=== PATIENT | male | born 1960 | race Caucasian/White ===

== ENCOUNTER 2017-05-08 12:30 | Outpatient (RCR) | payer MEDICARE, OTHER, MEDICAID ==
[~2017-05-08 12:30] MED LIST: AMBIEN 10MG10 MG PO; AMBIEN 5MG TABLE5 MG PO; ASPIRIN 81M81 MG/TA2 PO; CELEXA 20MG20 MG/TAB PO; CELEXA10 MG PO; COLACE 100100 MG/CAP PO; FLEXERIL 1010 MG/TAB PO; GLUCOPHAGE500 MG/TAB PO; LIPITOR 10MG10 MG PO; LOPRESSOR 225 MG/TAB PO; LOVENOX 4040 MG/0.4 SQ; MIRALAX PA17 GM/Dose PO; NICODERM C21 MG/PATC TD; NORCO 325 MG-101 TAB PO; NOVLOG SQ; NYSTATIN POWDER15 GM TOP; PERCOCET 325 MG1 TA2 PO; PLAVIX 75MG TAB75 MG PO; PREDNISONE20 MG PO; RT ADVAIR HFA 1112 G IH; RT SPIRIVA18 MCG IH; TYLENOL 325MG325 MG PO; VENTOLIN0.09 MG IH
== END 2017-05-14 | disposition home or self-care (01) ==
LOC: WSST
DX: I69.390 Apraxia following cerebral infarction (principal); M25.562 Pain in left knee; I69.351 Hemiplegia and hemiparesis following cerebral infarction affecting right dominant side; I69.398 Other sequelae of cerebral infarction; M62.81 Muscle weakness (generalized)
CPT/HCPCS: G8978-GP; G8979-GP; G8984-GO; G8985-GO; G8988-GO; G8999-GN; G9186-GN

== ENCOUNTER 2017-08-08 11:15 | Outpatient (RCR) | payer MEDICARE, OTHER | END 2017-08-13 | LOC: MKS.ESL.PT | DX: M77.12 Lateral epicondylitis, left elbow (principal); M25.562 Pain in left knee; R53.1 Weakness; Z86.73 Personal history of transient ischemic attack (TIA), and cerebral infarction without residual deficits | CPT/HCPCS: G8985-GO; G8987-GO; G9158-GN; G9186-GN ==

== ENCOUNTER 2017-10-23 11:45 | Outpatient (RCR) | payer MEDICARE, OTHER | END 2017-11-12 | disposition home or self-care (01) | LOC: MKS.ESL.PT | DX: M25.562 Pain in left knee (principal); R53.1 Weakness; Z86.73 Personal history of transient ischemic attack (TIA), and cerebral infarction without residual deficits | CPT/HCPCS: G8978-GP; G8979-GP; G8987-GO; G8988-GO ==

== ENCOUNTER → 2018-01-28 | Outpatient (CLI) | payer MEDICARE, OTHER | LOC: COL.RAD 07:27 | DX: K82.8 Other specified diseases of gallbladder (principal) ==

== ENCOUNTER 2018-02-01 10:15 | Outpatient (RCR) | payer MEDICARE, OTHER | END 2018-02-13 | LOC: MKS.ESL.PT | DX: M77.12 Lateral epicondylitis, left elbow (principal); M25.562 Pain in left knee; Z86.73 Personal history of transient ischemic attack (TIA), and cerebral infarction without residual deficits | CPT/HCPCS: G8987-GO; G8988-GO ==

== ENCOUNTER 2018-02-25 11:59 | Inpatient (IN) | payer MEDICARE, OTHER ==
[~2018-02-25] VITALS: Ht 177.8 cm; Wt 139.0 kg
[2018-03-26] VITALS (11 sets, daily range): BP systolic 114–143; BP diastolic 47–69; PULSE 73–92; TEMP 97.9–98.6
[2018-03-26] MEDS ORDERED: COZAAR 50MG50 MG/TAB PO (05:06)
[2018-03-26] MEDS ORDERED: AMBIEN 10MG10 MG PO (05:06)
[2018-03-26] MEDS ORDERED: FLOMAX 0.40.4 MG/CAP PO (05:07)
[2018-03-26] MEDS ORDERED: XALATAN EYE DROPS OU (05:08)
[2018-03-26] MEDS ORDERED: ULTRAM 50MG TAB50 MG PO (05:09)
[2018-03-26] MEDS ORDERED: MYRBETR50MG PO (06:02)
[2018-03-27 01:02] VITALS: BP 114/51; PULSE 76; TEMP 98.5
[2018-03-27 04:07] VITALS: BP 130/55; PULSE 79; TEMP 98.8
[2018-03-27 06:06] LABS: HEMOGLOBIN 10.7 g/dl (13.5-18.0)
[2018-03-27 06:07] LABS: HEMATOCRIT 32.2 % (42.0-52.0)
[2018-03-27 07:20] VITALS: BP 116/54; PULSE 88; TEMP 98.4
[2018-03-27 11:02] VITALS: BP 109/45; PULSE 84; TEMP 97.8
[2018-03-27 16:31] VITALS: BP 111/46; PULSE 97; TEMP 98.6
[2018-03-27 20:32] VITALS: BP 123/62; PULSE 101; TEMP 98.9
[2018-03-28 00:18] VITALS: BP 108/53; PULSE 101; TEMP 98.8
[2018-03-28 03:28] VITALS: BP 107/58; PULSE 99; TEMP 99.5
[2018-03-28 06:37] LABS: HEMATOCRIT 29.2 % (42.0-52.0); HEMOGLOBIN 9.8 g/dl (13.5-18.0)
[2018-03-28 08:10] VITALS: BP 90/39; PULSE 101; TEMP 98.1
[2018-03-28 16:44] VITALS: BP 103/38; PULSE 85; TEMP 99
[2018-03-28 19:56] VITALS: BP 90/36; PULSE 88; TEMP 98.2
[2018-03-28 23:25] VITALS: BP 90/41; PULSE 87; TEMP 98.2
[2018-03-29] VITALS (7 sets, daily range): BP systolic 93–123; BP diastolic 43–58; PULSE 51–100; TEMP 97.6–99.7
[2018-03-29 07:11] LABS: HEMATOCRIT 26.4 % (42.0-52.0); HEMOGLOBIN 9.1 g/dl (13.5-18.0)
[2018-03-29] MEDS ORDERED: ASPI325T6 PO (15:23)
[2018-03-30 04:49] VITALS: BP 108/57; PULSE 83; TEMP 98.5
[2018-03-30 11:53] VITALS: BP 108/57; PULSE 83; TEMP 98.5
[2018-03-30 12:15] VITALS: BP 96/44; PULSE 80; TEMP 98
[2018-03-30] MEDS ORDERED: PERCOCET 325 MG1 TA2 PO (17:30)
[2018-03-30] MEDS ORDERED: PHENERGAN 25 TA25 MG PO (17:31)
== END 2018-03-30 14:45 | DRG 470 ==
LOC: JCC 03-26 05:14
PROVIDERS: Orthopaedic Surgery Sports Medicine
PROC: 0SRD0J9 Replacement of Left Knee Joint with Synthetic Substitute, Cemented, Open Approach (ICD-10-PCS; principal; 2018-03-26 07:30)
DX: M17.12 Unilateral primary osteoarthritis, left knee (principal); E66.2 Morbid (severe) obesity with alveolar hypoventilation; Z68.42 Body mass index [BMI] 45.0-49.9, adult; E11.9 Type 2 diabetes mellitus without complications; I10 Essential (primary) hypertension; Z95.2 Presence of prosthetic heart valve; Z79.01 Long term (current) use of anticoagulants; J44.9 Chronic obstructive pulmonary disease, unspecified; F17.210 Nicotine dependence, cigarettes, uncomplicated; Z86.73 Personal history of transient ischemic attack (TIA), and cerebral infarction without residual deficits
CPT/HCPCS: A9284; C1713; C1776; J0690; J1100; J2250; J2405; J2704; J3010; J7030

== ENCOUNTER 2018-03-20 15:00 | Outpatient (RCR) | payer MEDICARE, OTHER ==
[2018-03-26] MEDS ORDERED: COZAAR 50MG50 MG/TAB PO (05:06)
[2018-03-26] MEDS ORDERED: AMBIEN 10MG10 MG PO (05:06)
[2018-03-26] MEDS ORDERED: FLOMAX 0.40.4 MG/CAP PO (05:07)
[2018-03-26] MEDS ORDERED: XALATAN EYE DROPS OU (05:08)
[2018-03-26] MEDS ORDERED: ULTRAM 50MG TAB50 MG PO (05:09)
[2018-03-26] MEDS ORDERED: MYRBETR50MG PO (06:02)
[2018-03-29] MEDS ORDERED: ASPI325T6 PO (15:23)
[2018-03-30] MEDS ORDERED: PERCOCET 325 MG1 TA2 PO (17:30)
[2018-03-30] MEDS ORDERED: PHENERGAN 25 TA25 MG PO (17:31)
[2018-04-09] MEDS ORDERED: DESENEX TP (08:40)
[2018-04-09] MEDS ORDERED: PERCOCET 325 MG1 TAB PO (08:41)
[2018-04-09] MEDS ORDERED: COLACE 100100 MG/CAP PO (09:00)
[2018-04-09] MEDS ORDERED: SENOKOT S 50 MG1 TAB PO (09:04)
== END 2018-05-14 11:21 | disposition home or self-care (01) ==
LOC: MKS.ESL.PT 15:00
DX: M25.562 Pain in left knee (principal); I69.951 Hemiplegia and hemiparesis following unspecified cerebrovascular disease affecting right dominant side

== ENCOUNTER 2018-03-29 15:46 | Inpatient (IN) | payer MEDICARE, OTHER ==
[~2018-03-29] VITALS: Ht 177.8 cm; Wt 148.6 kg
[~2018-03-29 15:46] MED LIST changes: +ASPI325T6 PO; +COZAAR 50MG50 MG/TAB PO; +FLOMAX 0.40.4 MG/CAP PO; +MYRBETR50MG PO; +ULTRAM 50MG TAB50 MG PO; +XALATAN EYE DROPS OU
[2018-03-30 15:07] VITALS: BP 109/52; PULSE 82; TEMP 98.4
[2018-03-30] MEDS ORDERED: PERCOCET 325 MG1 TA2 PO (17:30)
[2018-03-30] MEDS ORDERED: PHENERGAN 25 TA25 MG PO (17:31)
[2018-03-30 18:57] VITALS: BP 109/52; PULSE 82; TEMP 98.4
[2018-03-31 05:07] VITALS: BP 107/53; PULSE 73; TEMP 98.4
[2018-03-31 18:07] VITALS: BP 115/52; PULSE 77; TEMP 97.7
[2018-04-01 05:38] VITALS: BP 108/66; PULSE 81; TEMP 98.6
[2018-04-01 15:02] VITALS: BP 112/47; PULSE 78; TEMP 98.2
[2018-04-02 06:23] VITALS: BP 118/57; PULSE 84; TEMP 99.1
[2018-04-02 16:36] VITALS: BP 104/50; PULSE 80; TEMP 98
[2018-04-03 06:03] VITALS: BP 118/53; PULSE 78; TEMP 98.5
[2018-04-03 16:41] VITALS: BP 102/51; PULSE 81; TEMP 98.2
[2018-04-04 04:52] VITALS: BP 115/55; PULSE 79; TEMP 98.3
[2018-04-04 16:12] VITALS: BP 104/45; PULSE 82; TEMP 98.3
[2018-04-05 05:31] VITALS: BP 112/53; PULSE 76; TEMP 98.2
[2018-04-05 15:04] VITALS: BP 102/49; PULSE 81; TEMP 98.4
[2018-04-06 05:49] VITALS: BP 111/56; PULSE 77; TEMP 98.3
[2018-04-06 15:56] VITALS: BP 112/48; PULSE 80; TEMP 97.9
[2018-04-07 06:04] VITALS: BP 114/53; PULSE 85; TEMP 98.7
[2018-04-07 15:34] VITALS: BP 120/57; PULSE 82; TEMP 98.2
[2018-04-08 04:40] VITALS: BP 98/56; PULSE 91; TEMP 98.2
[2018-04-08 18:00] VITALS: BP 107/66; PULSE 72; TEMP 99
[2018-04-09 05:13] VITALS: BP 103/55; PULSE 77; TEMP 98.2
[2018-04-09] MEDS ORDERED: DESENEX TP (08:40)
[2018-04-09] MEDS ORDERED: PERCOCET 325 MG1 TAB PO (08:41)
[2018-04-09] MEDS ORDERED: COLACE 100100 MG/CAP PO (09:00)
[2018-04-09] MEDS ORDERED: SENOKOT S 50 MG1 TAB PO (09:04)
== END 2018-04-09 13:40 | disposition home health service (06) | DRG 560 ==
DX: Z47.1 Aftercare following joint replacement surgery (principal); I69.351 Hemiplegia and hemiparesis following cerebral infarction affecting right dominant side; Z68.42 Body mass index [BMI] 45.0-49.9, adult; Z96.652 Presence of left artificial knee joint; M17.12 Unilateral primary osteoarthritis, left knee; I10 Essential (primary) hypertension; E11.9 Type 2 diabetes mellitus without complications; Z95.2 Presence of prosthetic heart valve; F17.210 Nicotine dependence, cigarettes, uncomplicated; E66.01 Morbid (severe) obesity due to excess calories
CPT/HCPCS: 99222-AI; 99232-AI; 99239; J1815

== ENCOUNTER → 2018-06-21 | Outpatient (CLI) | payer MEDICARE, OTHER ==
[2018-06-21] VITALS (9 sets, daily range): BP systolic 101–121; BP diastolic 53–68; PULSE 75–84
[~2018-06-21] VITALS: Ht 177.8 cm; Wt 143.2 kg
[~2018-06-21] MED LIST changes: +ASPIRIN E.C. 8181 MG PO; +DESENEX TP; +PERCOCET 325 MG1 TAB PO; +PHENERGAN 25 TA25 MG PO; +SENOKOT S 50 MG1 TAB PO; +WELLBUTRIN SR150 M1 PO
[2018-06-21 08:44] LABS: INR 1.1 (0.8-3.0)
== END ==
LOC: COL.RAD 08:09
PROVIDERS: Family Medicine
DX: R74.8 Abnormal levels of other serum enzymes (principal)
CPT/HCPCS: J2250; J3010

== ENCOUNTER 2018-08-08 13:45 | Outpatient (RCR) | payer MEDICARE, OTHER | END 2018-08-12 | disposition home or self-care (01) | LOC: MKS.ESL.PT | DX: Z47.1 Aftercare following joint replacement surgery (principal); Z96.652 Presence of left artificial knee joint; M17.11 Unilateral primary osteoarthritis, right knee; I69.331 Monoplegia of upper limb following cerebral infarction affecting right dominant side; M54.5 Low back pain; R26.89 Other abnormalities of gait and mobility | CPT/HCPCS: G8978-GP; G8979-GP; G8984-GO; G8985-GO ==

== ENCOUNTER → 2018-11-18 | Outpatient (RCR) | payer MEDICARE, OTHER | END | disposition home or self-care (01) | LOC: MKS.ESL.OT → MKS.ESL.PT 08-20 13:30 → MKS.ESL.OT 08-27 13:30 → MKS.ESL.PT 11-07 10:30 → MKS.ESL.OT 11-11 13:15 | DX: Z47.1 Aftercare following joint replacement surgery (principal); Z96.652 Presence of left artificial knee joint; I69.331 Monoplegia of upper limb following cerebral infarction affecting right dominant side; M54.5 Low back pain; R26.89 Other abnormalities of gait and mobility ==

== ENCOUNTER 2019-02-10 13:15 | Outpatient (RCR) | payer MEDICARE, OTHER | END 2019-02-19 | LOC: MKS.ESL.OT | DX: Z47.1 Aftercare following joint replacement surgery (principal); I69.851 Hemiplegia and hemiparesis following other cerebrovascular disease affecting right dominant side; Z96.652 Presence of left artificial knee joint ==

== ENCOUNTER 2019-03-08 11:58 | Inpatient (IN) | payer MEDICARE, OTHER ==
[~2019-03-08] VITALS: Ht 177.8 cm; Wt 149.6 kg
[~2019-03-08 11:58] MED LIST changes: +COUMADIN 5MG5 MG/TAB PO; +IMURAN 50MG TAB50 MG PO; +PREDNISONE 5MG5 MG PO; +TOPROL XL 25MG25 MG PO; -WELLBUTRIN SR150 M1 PO; +WELLBUTRIN XL150 MG PO
[2019-03-08 13:09] VITALS: BP 114/60; PULSE 63; TEMP 98.5
[2019-03-08] MEDS ORDERED: LOVENOX150 MG/ML SQ (13:32)
[2019-03-08] MEDS ORDERED: BETAPACE160 MG PO (13:33)
[2019-03-08] MEDS ORDERED: COUMADIN4 MG PO (13:35)
[2019-03-08] MEDS ORDERED: GLUCOPHAGE500 MG/TAB PO (13:38)
[2019-03-08 17:26] VITALS: BP 116/57; PULSE 66; TEMP 98.1
[2019-03-09 05:48] VITALS: BP 96/50; PULSE 67; TEMP 99.2
[2019-03-09 06:20] LABS: BASO % 0.3 % (0.0-2.0); EOS % 0.5 % (0-4.0); GRAN # 2.8 (1.4-6.5); GRAN % 75.1 % (42.2-75.2); LYMPH # 0.7 (1.2-3.4); MEAN CELL VOLUME 88 fl (80.0-100.0); MEAN CORPUSCULAR HGB CONC 31 g/dl (33.0-37.0); MEAN PLATELET VOLUME 9.4 fl (7.4-10.4); MONO # 0.2 (0.1-0.6); PLATELET COUNT 197 K/mm3 (130-400); RED BLOOD COUNT 3.06 M/mm3 (4.20-5.60); REDCELL DISTRIBUTION WIDTH-CV 17.4 % (11.5-14.5)
[2019-03-09 06:21] LABS: PROTHROMBIN TIME 23.6 SECONDS (9.7-12.8)
[2019-03-09 06:23] LABS: HEMATOCRIT 26.9 % (42.0-52.0); HEMOGLOBIN 8.4 g/dl (13.5-18.0); MEAN CORPUSCULAR HEMOGLOBIN 27 pg (27.0-31.0)
[2019-03-09 06:38] LABS: ALBUMIN 2.8 gm/dL (3.5-5.0); BILIRUBIN,TOTAL 1.2 mg/dL (0.0-1.0); CREATININE, serum 0.7 (0.66-1.25); MAGNESIUM 2.1 mg/dL (1.6-2.3); POTASSIUM 3.8 mmol/L (3.4-5.0); TOTAL PROTEIN 7.6 gm/dL (6.4-8.2)
[2019-03-09 16:29] VITALS: BP 116/59; PULSE 66; TEMP 98.5
[2019-03-09 16:31] VITALS: BP 116/59
[2019-03-09 17:42] VITALS: BP 116/59
[2019-03-10 05:22] VITALS: BP 108/68; PULSE 72; TEMP 100
[2019-03-10 05:58] VITALS: TEMP 100.1
[2019-03-10 06:43] VITALS: BP 108/68
[2019-03-10 06:47] LABS: INR 1.7 (0.8-3.0); PROTHROMBIN TIME 20.6 SECONDS (9.7-12.8)
[2019-03-10 08:34] VITALS: TEMP 99.3
[2019-03-10 16:22] VITALS: BP 107/52; PULSE 70; TEMP 98.9
[2019-03-11 06:00] VITALS: BP 147/67; PULSE 102; TEMP 98.9
[2019-03-11 06:20] VITALS: BP 109/48
[2019-03-11 08:06] LABS: INR 1.4 (0.8-3.0); PROTHROMBIN TIME 16.4 SECONDS (9.7-12.8)
[2019-03-11 16:57] VITALS: BP 104/46; PULSE 73; TEMP 98.4
[2019-03-11 21:12] VITALS: BP 126/48
[2019-03-12 05:57] VITALS: BP 106/53; PULSE 71; TEMP 98.8
[2019-03-12 07:02] LABS: BASO % 0.2 % (0.0-2.0); EOS % 0.7 % (0-4.0); GRAN # 3.4 (1.4-6.5); GRAN % 75.3 % (42.2-75.2); LYMPH # 0.8 (1.2-3.4); LYMPH % 18.2 % (20.0-51.0); MEAN CELL VOLUME 87 fl (80.0-100.0); MEAN CORPUSCULAR HGB CONC 31 g/dl (33.0-37.0); MEAN PLATELET VOLUME 9.3 fl (7.4-10.4); MONO # 0.2 (0.1-0.6); MONO % 4.5 % (1.7-9.3); PLATELET COUNT 197 K/mm3 (130-400); REDCELL DISTRIBUTION WIDTH-CV 17.2 % (11.5-14.5)
[2019-03-12 07:07] LABS: HEMATOCRIT 26.8 % (42.0-52.0); HEMOGLOBIN 8.4 g/dl (13.5-18.0); MEAN CORPUSCULAR HEMOGLOBIN 27 pg (27.0-31.0)
[2019-03-12 07:10] LABS: INR 1.5 (0.8-3.0); PROTHROMBIN TIME 17.3 SECONDS (9.7-12.8)
[2019-03-12 07:13] LABS: ALBUMIN 2.8 gm/dL (3.5-5.0); BILIRUBIN,TOTAL 1.4 mg/dL (0.0-1.0); CALCIUM 8.2 mg/dL (8.4-10.2); CREATININE, serum 0.64 (0.66-1.25); MAGNESIUM 1.9 mg/dL (1.6-2.3); TOTAL PROTEIN 7.8 gm/dL (6.4-8.2)
[2019-03-12 16:29] VITALS: BP 85/35
[2019-03-12 16:30] VITALS: BP 110/54; BP 80/30; PULSE 77; TEMP 98.9
[2019-03-12 18:01] VITALS: BP 90/54
[2019-03-12 21:30] VITALS: BP 100/60
[2019-03-13 05:15] VITALS: BP 97/43; PULSE 76; TEMP 98.6
[2019-03-13 06:00] VITALS: BP 91/33
[2019-03-13 06:08] LABS: INR 1.7 (0.8-3.0); PROTHROMBIN TIME 20.6 SECONDS (9.7-12.8)
[2019-03-13 17:57] VITALS: BP 120/59; PULSE 73; TEMP 98.7
[2019-03-13 17:58] VITALS: BP 120/59
[2019-03-14 05:07] VITALS: BP 100/54; PULSE 76; TEMP 98.5
[2019-03-14 06:49] VITALS: BP 101/52
[2019-03-14 07:04] LABS: PROTHROMBIN TIME 24.1 SECONDS (9.7-12.8)
[2019-03-14 08:58] VITALS: BP 112/60; PULSE 60
[2019-03-14 15:45] VITALS: BP 107/58
[2019-03-14 15:46] VITALS: BP 107/58; PULSE 66; TEMP 98.2
[2019-03-15 06:16] VITALS: BP 97/46; PULSE 64; TEMP 98.3
[2019-03-15 09:01] LABS: INR 2.2 (0.8-3.0); PROTHROMBIN TIME 26.1 SECONDS (9.7-12.8)
[2019-03-15 16:01] VITALS: BP 110/51
[2019-03-15 16:02] VITALS: BP 122/51; PULSE 81; TEMP 98.1
[2019-03-16 06:01] VITALS: BP 106/46; PULSE 66; TEMP 98.4
[2019-03-16 08:30] LABS: INR 2.2 (0.8-3.0); PROTHROMBIN TIME 26.9 SECONDS (9.7-12.8)
[2019-03-16 17:06] VITALS: BP 105/56; PULSE 65; TEMP 98.4
[2019-03-16 17:07] VITALS: BP 118/54; BP 121/61; PULSE 73
[2019-03-16 17:08] VITALS: BP 110/51
[2019-03-17 05:45] VITALS: BP 95/45; PULSE 74; TEMP 99.4
[2019-03-17 07:02] LABS: MEAN CELL VOLUME 87 fl (80.0-100.0); MEAN CORPUSCULAR HGB CONC 31 g/dl (33.0-37.0); PLATELET COUNT 201 K/mm3 (130-400); RED BLOOD COUNT 3.06 M/mm3 (4.20-5.60); REDCELL DISTRIBUTION WIDTH-CV 17.4 % (11.5-14.5)
[2019-03-17 07:06] LABS: HEMATOCRIT 26.5 % (42.0-52.0); HEMOGLOBIN 8.1 g/dl (13.5-18.0); MEAN CORPUSCULAR HEMOGLOBIN 26 pg (27.0-31.0)
[2019-03-17 07:08] LABS: INR 2.3 (0.8-3.0)
[2019-03-17 07:38] LABS: BAND 7 % (0-10); EOSINOPHIL 2 % (0-4); LYMPHOCYTE 17 % (20.0-51.0); METAMYELOCYTE 1 % (0-0); NEUTROPHILS 73 % (42.0-75.2); PLATELET ESTIMATE NORMAL (NORMAL); TARGET CELLS 1+
[2019-03-17 16:04] VITALS: BP 107/43; PULSE 67; TEMP 98.1
[2019-03-17 16:06] VITALS: BP 107/43
[2019-03-18 06:10] VITALS: BP 114/55; PULSE 73; TEMP 99.3
[2019-03-18 08:27] LABS: INR 2.4 (0.8-3.0); PROTHROMBIN TIME 28.5 SECONDS (9.7-12.8)
[2019-03-18 09:16] VITALS: BP 130/56; PULSE 54; TEMP 99.5
[2019-03-18 10:43] VITALS: BP 121/66; PULSE 73; TEMP 99.1
[2019-03-18 16:10] VITALS: BP 118/52; PULSE 76; TEMP 98.4
[2019-03-18 18:02] VITALS: BP 123/53
[2019-03-19 01:27] VITALS: BP 104/51; PULSE 81; TEMP 99.5
[2019-03-19 06:40] LABS: BASO % 0.3 % (0.0-2.0); EOS % 0.3 % (0-4.0); GRAN # 2.5 (1.4-6.5); GRAN % 72.3 % (42.2-75.2); LYMPH # 0.7 (1.2-3.4); LYMPH % 20.7 % (20.0-51.0); MEAN CELL VOLUME 85 fl (80.0-100.0); MEAN CORPUSCULAR HGB CONC 32 g/dl (33.0-37.0); MEAN PLATELET VOLUME 9.3 fl (7.4-10.4); MONO # 0.2 (0.1-0.6); MONO % 5.8 % (1.7-9.3); PLATELET COUNT 194 K/mm3 (130-400); RED BLOOD COUNT 2.94 M/mm3 (4.20-5.60); REDCELL DISTRIBUTION WIDTH-CV 17.5 % (11.5-14.5)
[2019-03-19 06:41] LABS: INR 2.2 (0.8-3.0); PROTHROMBIN TIME 26.6 SECONDS (9.7-12.8)
[2019-03-19 07:01] LABS: HEMOGLOBIN 7.9 g/dl (13.5-18.0); MEAN CORPUSCULAR HEMOGLOBIN 27 pg (27.0-31.0)
[2019-03-19] MEDS ORDERED: FERROUS SU325 MG/TAB PO (09:28)
[2019-03-19] MEDS ORDERED: TYLENOL 325MG325 MG PO (09:29)
[2019-03-19] MEDS ORDERED: PROTONIX20 MG PO (09:30)
== END 2019-03-19 15:30 | disposition home or self-care (01) | DRG 309 ==
LOC: COL.ER 11:58 → EDSTATUS 12:00
PROVIDERS: ADMIT Internal Medicine
DX: I48.91 Unspecified atrial fibrillation (principal); E87.1 Hypo-osmolality and hyponatremia; Z68.42 Body mass index [BMI] 45.0-49.9, adult; I69.251 Hemiplegia and hemiparesis following other nontraumatic intracranial hemorrhage affecting right dominant side; E11.9 Type 2 diabetes mellitus without complications; F41.9 Anxiety disorder, unspecified; F32.9 Major depressive disorder, single episode, unspecified; K75.4 Autoimmune hepatitis; N40.0 Benign prostatic hyperplasia without lower urinary tract symptoms; D64.9 Anemia, unspecified; G47.00 Insomnia, unspecified; E66.01 Morbid (severe) obesity due to excess calories; F17.210 Nicotine dependence, cigarettes, uncomplicated; Z79.01 Long term (current) use of anticoagulants; Z79.84 Long term (current) use of oral hypoglycemic drugs; Z95.2 Presence of prosthetic heart valve; Z96.652 Presence of left artificial knee joint; Z88.8 Allergy status to other drugs, medicaments and biological substances
CPT/HCPCS: 99222-AI; 99232-AI; A9284; J1650; J1815; J7500; J7512

== ENCOUNTER 2019-06-05 13:00 | Outpatient (RCR) | payer MEDICARE, OTHER ==
[~2019-06-05 13:00] MED LIST changes: +BETAPACE160 MG PO; +COUMADIN4 MG PO; +FERROUS SU325 MG/TAB PO; +LOVENOX150 MG/ML SQ; +PROTONIX20 MG PO
[2019-06-10] MEDS ORDERED: TYLENOL 8 HR PO (22:06)
[2019-06-10] MEDS ORDERED: FERRO-TIME325 MG PO (22:07)
[2019-06-10] MEDS ORDERED: LASIX 20MG TABL20 MG PO (22:14)
[2019-06-10] MEDS ORDERED: COUMADIN 1010 MG/TAB PO (22:15)
[2019-06-10] MEDS ORDERED: LOPRESSOR 550 MG/TAB PO (22:17)
[2019-06-10] MEDS ORDERED: LOPRESSOR100 MG PO (22:17)
[2019-06-10] MEDS ORDERED: MICRO-GUARD21 TP (22:18)
[2019-06-10] MEDS ORDERED: PROTONIX20 MG PO (22:19)
[2019-06-18] MEDS ORDERED: LIPITOR 80MG80 MG PO (10:41)
[2019-06-18] MEDS ORDERED: BETAPACE 80MG80 MG PO (10:41)
[2019-06-18] MEDS ORDERED: NICODERM C14 MG/PATC TD (10:42)
[2019-06-18] MEDS ORDERED: ASPIRIN 81M81 MG/TA2 PO (10:42)
[2019-06-18] MEDS ORDERED: MELATIN 3 MG-11 TAB PO (10:43)
[2019-06-18] MEDS ORDERED: WELLBUTRIN XL150 MG PO (15:34)
[2019-06-18] MEDS ORDERED: SEROQUEL50 MG PO (15:35)
[2019-06-18] MEDS ORDERED: LEVAQUIN 750MG750 M1 PO (15:36)
[2019-06-18] MEDS ORDERED: NORCO 325 MG-51 TAB PO (15:48)
[2019-06-18] MEDS ORDERED: LOTSPY TOP (15:52)
[2019-06-18] MEDS ORDERED: MIRALAX PA17 GM/Dose PO (15:54)
== END 2019-06-21 | disposition home or self-care (01) ==
LOC: MKS.ESL.PT
DX: I69.351 Hemiplegia and hemiparesis following cerebral infarction affecting right dominant side (principal); I48.91 Unspecified atrial fibrillation

== ENCOUNTER 2019-06-18 13:21 | Inpatient (IN) | payer MEDICARE, OTHER ==
[~2019-06-18] VITALS: Ht 177.8 cm; Wt 134.4 kg
[~2019-06-18 13:21] MED LIST changes: +BETAPACE 80MG80 MG PO; +COUMADIN 1010 MG/TAB PO; +FERRO-TIME325 MG PO; +LASIX 20MG TABL20 MG PO; +LIPITOR 80MG80 MG PO; +LOPRESSOR 550 MG/TAB PO; +LOPRESSOR100 MG PO; +MELATIN 3 MG-11 TAB PO; +MICRO-GUARD21 TP; +NICODERM C14 MG/PATC TD; +TYLENOL 8 HR PO
[2019-06-18] MEDS ORDERED: WELLBUTRIN XL150 MG PO (15:34)
[2019-06-18] MEDS ORDERED: SEROQUEL50 MG PO (15:35)
[2019-06-18] MEDS ORDERED: LEVAQUIN 750MG750 M1 PO (15:36)
[2019-06-18 15:44] VITALS: BP 148/55; PULSE 76; TEMP 98.1
[2019-06-18] MEDS ORDERED: NORCO 325 MG-51 TAB PO (15:48)
[2019-06-18] MEDS ORDERED: LOTSPY TOP (15:52)
[2019-06-18] MEDS ORDERED: MIRALAX PA17 GM/Dose PO (15:54)
--- NOTE | 2019-06-18 17:55 | NUR ---
Pt was transfered to room 335 from medical unit. He is awake and A/Ox4. He is able to transfer from w/c to bed with 2x assist pivot turn. Upon arrival pt noted to have bilateral FA's wrapped with kerlix + soft gauze, appeared to be too tight on pt's skin. Removed at this time. Pt has multiple skin tears to bilateral FAs + right hand. Wounds oozing blood. Dressings changed at this time. Steri strips applied with foam dressings for absorption. Pt continues to have occasional incontinece with movement/coughing. Linens changed and rubi care provided. Sister at bedside, both updated on plan of care.
--- NOTE | 2019-06-18 20:00 | NUR ---
REPORT FROM ERICA TUCKER. PT RESTING IN BED. SISTER AT BEDSIDE. VERY SUPPORTIVE. PT A&OX4. SPEECH DIFFICULT TO UNDERSTAND. NYSTAGMUS AND ENTROPIA OF RT EYE. WEARS PATCH ON LT EYE PRN. SEE ASSESSMENT R/T BILAT ARM INJURIES FROM HOME FALL. RT HEMIPARESIS NOTED. +SENSATION. 4TH TOE LT FOOT HX AMPUTATION. C/O CONTINUED RT SHOULDER PAIN. KPAD STARTED FOR COMFORT. TOO SOON FOR PAIN MEDICATION. PT HAS URINARY INCONTINENCE. CLEANED UP. APPLIED LOTRIMIN PWDR TO SMITH AREA. WEARS DIAPERS AT HS. CALL LIGHT IN REACH. BED ALARM SET.
[2019-06-19 04:52] VITALS: BP 153/62; PULSE 74; TEMP 98.4
--- NOTE | 2019-06-19 07:51 | NUR ---
Patient resting in bed at this time, call light in reach and bed alarm is on. Patient in pleasent mood. Ate all his breakfast. Given prn pain meds for right shoulder and back pain will continue to monitor.
--- NOTE | 2019-06-19 13:25 | NUR ---
SW met with the patient to complete assessment on Rehab. Pt is alert & oriented. He is able to verbally communicate his needs & wants to others but continues to have some slurred speech. Pt lives alone & has good support from his sisters, Jacklyn (ph#[phone]) & Edwina (ph#[phone]). Pt lives in an apartment on the ground floor & has no steps to enter. The bathroom has a tub/shower combo w/ curtain, grab bars, & hand held shower head. Pt reports being independent with ADLs & walked mostly w/ a s/cane. Pt did his own cooking, housekeeping, laundry, shopping, medication, & finance management. Pt's PCP is Dr. Forrest and he receives his medications at the [facility], which he reports no difficulties obtaining his meds. The pt does have advanced directives in EMR. Pt does report having some depression due to the new stroke & recent medical issues & is open to having SW visit with him. Psych has been consulted for management of antidepressant, as his Wellburtrin is being discontinued & has been on Seroquel for hallucinations, which he hasn't been having. Pt plans to return back home w/ support from his sisters. His goal is to be able to walk better & take care of himself.
--- NOTE | 2019-06-19 15:02 | NUR ---
Dr. Alan called this nurse this morning and wanted to know the update on patient since there was a new Psych consult initiated. Per Dr. Levi this nurse reported that patient had his last dose of Wellbutrin and is currently on Seroquel, but has not been having any hallucinations any more. This nurse received the following new orders: Decrease Seroquel to 25 mg at HS and to continue Wellbutrin [address] Alan. This nurse voiced understanding and will continue to monitor patient. The will see patient on Sunday.
--- NOTE | 2019-06-19 15:19 | NUR ---
Initial visit; Patient thanked Pouring Crane Operator for stopping and introducing herself though he declined spiritual care. Pouring Crane Operator wished him well.
[2019-06-19 18:09] VITALS: BP 161/63; PULSE 75; TEMP 98.1
--- NOTE | 2019-06-19 19:28 | NUR ---
Patient required staff to open containers for him due to right side flaccidity. Able to eat on his own and drink on his own using utinsils, but did it slow. When rolling from left to right during an incontinent brief change that was through his shorts it required one person to roll him over and hold on to him and the other to wipe him.
--- NOTE | 2019-06-19 20:00 | NUR ---
PT RESTING IN BED. A&OX4. SLURRED SPEECH. RT SIDE HEMIPARESIS. HAS RT HAND CLINCHED AT TIMES WITH ARM STIFF. ARMS ELEVATED ON PILLOWS. NOTED NYSTAGMUS WITH RT ENTROPIA. ADMITS TO RT SHOULDER PAIN. PAIN LESS SINCE PAIN MED AROUND 1700. KPAD TO THIS AREA. INCONT OF URINE. WEARS DIAPERS. CALL LIGHT IN REACH. BED ALARM SET. NO FURTHER NEEDS.
--- NOTE | 2019-06-20 04:14 | NUR ---
INCONTINENT URINE. BEDDING, DIAPER AND GOWN CHANGED. URINE SL CONCENTRATED. NO ODOR. NOTED INNER BUTTOCK RED. SKIN INTACT. BARRIER OINTMENT APPLIED. PT RESTING WELL SINCE PAIN MED. RT HAND PRETTY MUCH STAYS CLINCHED. RLE W/ SPASMS WHEN REPOSITIONED. CALL LIGHT IN REACH. BED ALARM SET.
[2019-06-20 05:48] VITALS: BP 157/68; PULSE 82; TEMP 98.3
[2019-06-20 06:51] LABS: INR 1.5 (0.8-3.0); PROTHROMBIN TIME 18.1 SECONDS (9.7-12.8)
--- NOTE | 2019-06-20 11:25 | NUR ---
Warfarin Initial Dosing Pharmacy Note Ordering Provider: Adalid Levi MD Indication: Atrial fibrillation, h/o aortic valve replacement-bioprosthetic, h/o CVA on therapeutic Warfarin LABS: INR 1.5 Recommendation: Increase Warfarin back to home dose of 10 mg po qHS. Previous INR levels supratherapeutic. Decreased dose to Warfarin 8 mg po qHS with start of Levquin due to drug interaction. Bridging with therapeutic Lovenox until INR therapeutic. Pharmacy will continue to monitor. Home Regimen: Warfarin 10 mg po qHS
--- NOTE | 2019-06-20 11:57 | NUR ---
Verified with pt's pharmacy pt's prednisone dose, per Dr. Levi, adjusted order.
[2019-06-20 15:44] VITALS: BP 137/60; PULSE 74; TEMP 98.2
--- NOTE | 2019-06-20 17:34 | NUR ---
Pt asked about second norco tab ordered, looked up previous room's orders and called Dr. Levi, see new order. Pt reporting unrelieved pain to right shoulder. Asked sister to bring pt's loop recorder transmitter from home per cardiology. Stopped potassium protocol and started scheduled PO K+. Reviewed med changes with pt. Mepilex dressings to BUE intact, therapy applied cotton roll sleeve. Sister visited today, sisters in law to visit this guadalupe.
--- NOTE | 2019-06-20 20:02 | NUR ---
Introduced night nurse Mami to pt, in bed with cell phone and tv on. Pt reports pain after second [place] improved.
--- NOTE | 2019-06-20 20:35 | NUR ---
Pt assessment complete. Incont. of urine. Bed changed. C/O right arm pain rated 2/10. Speech remains slurred. At 2200, I brought pt's HS meds to him. Alert and talking, tells me he will take 2 pills at a time. Pt has no difficulty swallowing medication. He stated that he wanted to wait a little bit for his Lovenox and his eye gtts until after he voided. Voids small amt in urinal and is incontinent of large amt. 2212 pt began to appear to have a seizure. Snoring resp, with clinched teeth. No response. 2220 Called Surg Vegetable Preparer and we monitored VS and kept pt safe. Pt becomes gurgly, turned pt to L side, vomits large amt undigested food. Suctioned out mouth. O2 at 3L/NC. 2230 Dr Richey notified. 223 supervisor of instruction notified. 2255 Rossi at bedside. 2315 supervisor of instruction started #[id number] in Left AC on 2nd attempt. Lab in to draw blood. RT in room. [address] per cot and then transfer to ICU#3. Family notified by supervisor of instruction. Report called to CAITLIN Calvin in ICU at 2334.
[2019-06-20 22:28] VITALS: BP 160/103; PULSE 124; TEMP 98.7
[2019-06-20 22:34] VITALS: BP 195/80
[2019-06-20 23:19] LABS: MEAN CELL VOLUME 83 fl (80.0-100.0); MEAN CORPUSCULAR HGB CONC 31 g/dl (33.0-37.0); MEAN PLATELET VOLUME 9.2 fl (7.4-10.4); PLATELET COUNT 305 K/mm3 (130-400); RED BLOOD COUNT 4.18 M/mm3 (4.20-5.60); REDCELL DISTRIBUTION WIDTH-CV 19.9 % (11.5-14.5)
[2019-06-20 23:20] LABS: HEMATOCRIT 34.8 % (42.0-52.0); HEMOGLOBIN 10.8 g/dl (13.5-18.0); MEAN CORPUSCULAR HEMOGLOBIN 26 pg (27.0-31.0)
[2019-06-20 23:33] LABS: ARTERIAL BLD GAS O2 SATURATION 88.1 % (92-100); ARTERIAL BLD GAS TCO2 CT 27.6; ARTERIAL BLOOD GAS BASE EXCESS 2.6 (-2-2); ARTERIAL BLOOD GAS HCO3 26.4 meq/L (22-26); ARTERIAL BLOOD GAS PCO2 38.1 mmHg (35-45); ARTERIAL BLOOD GAS PO2 56.2 mmHg (80-100); ARTERIAL BLOOD GAS pH 7.46 (7.35-7.45)
[2019-06-20 23:40] LABS: ANISOCYTOSIS 2+; HYPOCHROMIA 2+; LYMPHOCYTE 13 % (20.0-51.0); MYELOCYTE 3 % (0-0); NEUTROPHILS 81 % (42.0-75.2); PLATELET ESTIMATE NORMAL (NORMAL)
--- NOTE | 2019-06-20 23:50 | NUR ---
Arrived to the unit via stretcher; patient not alert and oriented. Snoring respirations noted; No response to sternal rubbing. Attached to all monitors. Dr. Richey in the unit to see patient. horticultural services supervisor epifanio ferrera to contact family members.
[2019-06-20 23:58] VITALS: BP 196/100; PULSE 85; TEMP 98.6
[2019-06-20 23:59] VITALS: O2SAT 92
[2019-06-21] VITALS (35 sets, daily range): O2SAT 90–98
--- NOTE | 2019-06-21 00:40 | NUR ---
Patient obsesrved with facial flushing, hr increased to 130's and appeared to be clenching his tongue and wretching. Dr. Richey at bedside. Received verbal order to administer Ativan IV.
--- NOTE | 2019-06-21 00:40 | NUR ---
Hospitalist speaking with family and they have decided to place patient on comfort care at this time.
--- NOTE | 2019-06-21 01:35 | NUR ---
Called to bedside by family due to patient having emesis. Patient was dusky in color and was coughing; oral suctioning performed. Placed scopalamine patch and administered PRN morphine.
--- NOTE | 2019-06-21 02:08 | NUR ---
Confirmed via auscultation by two nurses that patient had . Family and environmental web crawler at bedside.
--- NOTE | 2019-06-21 02:25 | NUR ---
Dr. Richey notified that patient has .
== END 2019-06-20 23:50 | disposition expired | DRG 64 ==
LOC: ICU 06-20 23:50
PROVIDERS: Student in an Organized Health Care Education/Training Program; ADMIT Hospitalist
DX: I62.9 Nontraumatic intracranial hemorrhage, unspecified (principal); A41.9 Sepsis, unspecified organism; I69.251 Hemiplegia and hemiparesis following other nontraumatic intracranial hemorrhage affecting right dominant side; Z68.41 Body mass index [BMI] 40.0-44.9, adult; I48.92 Unspecified atrial flutter; N39.0 Urinary tract infection, site not specified; R44.3 Hallucinations, unspecified; R47.01 Aphasia; I48.91 Unspecified atrial fibrillation; E11.9 Type 2 diabetes mellitus without complications; E66.01 Morbid (severe) obesity due to excess calories; N40.0 Benign prostatic hyperplasia without lower urinary tract symptoms; F32.9 Major depressive disorder, single episode, unspecified; W18.30XA Fall on same level, unspecified, initial encounter; Y92.009 Unspecified place in unspecified non-institutional (private) residence as the place of occurrence of the external cause; R41.0 Disorientation, unspecified; K75.4 Autoimmune hepatitis; G47.00 Insomnia, unspecified; D50.9 Iron deficiency anemia, unspecified; B96.5 Pseudomonas (aeruginosa) (mallei) (pseudomallei) as the cause of diseases classified elsewhere; F17.210 Nicotine dependence, cigarettes, uncomplicated; Z79.01 Long term (current) use of anticoagulants; Z79.891 Long term (current) use of opiate analgesic; Z79.84 Long term (current) use of oral hypoglycemic drugs; Z79.52 Long term (current) use of systemic steroids; Z95.2 Presence of prosthetic heart valve; Z95.818 Presence of other cardiac implants and grafts; Z88.3 Allergy status to other anti-infective agents
CPT/HCPCS: 99222-AI; 99232-AI; 99238; J1650; J1815; J1953; J2060; J2270; J2405; J7030; J7500; J7512